=== PATIENT | female | born 1965 | race Caucasian/White ===

== ENCOUNTER 2017-02-17 21:29 | Inpatient (IN) | payer OTHER ==
[~2017-02-17] VITALS: Ht 231.1 cm; Wt 117.3 kg
[~2017-02-17 21:29] MED LIST: ASPI81TA82 PO; ATOR10TA PO; METO25 PO; PLAV75TA PO
[2017-02-17 22:50] VITALS: BP 128/68; PULSE 77; RESP 17; RESP 19; TEMP 96.2; O2SAT 96
[2017-02-17] MEDS: DOCUSATE SODIUM 100 MG CAP PO SCH (23:00)
[2017-02-17] MEDS ORDERED: ALUMINUM/MAGNESIUM/SIMETH 30 ML CUP PO PRN (23:30)
[2017-02-17] MEDS ORDERED: MAGNESIUM HYDROXIDE SUSP 30 ML CUP PO PRN (23:30)
[2017-02-17] MEDS ORDERED: ACETAMINOPHEN 325 MG TAB PO PRN (23:30)
[2017-02-17] MEDS ORDERED: LORazepam 2 MG/ML VIAL IM PRN (23:30)
[2017-02-18] MEDS: LORazepam 1 MG TAB PO PRN (01:06)
[2017-02-18 05:33] VITALS: BP 163/74; PULSE 73; RESP 17; TEMP 98.1; O2SAT 96
[2017-02-18 07:50] LABS: BLOOD, URINE LARGE (NEG); COMMENT (UR) CULT NOT INDICATED; CULTURE IF INDICATED CULT NOT INDICATED; GLUCOSE,URINE NEG (NEG); KETONE, URINE 10 mg/dL (NEG); MUCUS URINE FEW /lpf (OCC); NITRITE,URINE NEG (NEG); SQUAMOUS EPITHELIAL CELL URINE <1 /hpf (0-5); URINE COLOR YELLOW (YELLW/STRAW)
[2017-02-18] MEDS: CITALOPRAM HYDROBROMIDE 20 MG TAB PO SCH (08:37)
[2017-02-18] MEDS: LISINOPRIL 10 MG TAB PO SCH (08:38)
[2017-02-18] MEDS: ASPIRIN EC 81 MG TABEC PO SCH (08:38)
[2017-02-18] MEDS: ATORVASTATIN 40 MG TAB PO SCH (08:38)
[2017-02-18] MEDS: PANTOPRAZOLE SOD 40 MG DELAYED RELEASE TAB PO SCH (08:38)
[2017-02-18] MEDS: DOCUSATE SODIUM 100 MG CAP PO SCH ×2 (08:38→20:22)
[2017-02-18] MEDS: METOPROLOL SUCCINATE 25 MG EXTENDED RELEASE TAB PO SCH (08:38)
--- NOTE | 2017-02-18 16:29 | HHI.HP ---
Provisional Diagnosis Admission Date Feb 17, 2017 at 22:55 [place] I. Major depressive disorder, single episode, severe without psychotic features [place] II. deferred [place] III. CAD, arthritis, obesity [place] IV. recent divorce, finanical difficulty, limited social support [place] V. 35 Certification of Person's Competence To Provide Express and Informed Consent I have personally examined Dennise Spears , a person being served at [facility] on, Feb 18, 2017 16:29. Express and informed consent means consent voluntarily given in writing, by a competent person, after sufficient explanation and disclosure of the subject matter involved to enable the person to make a knowing and willful decision without any element of force, fraud, deceit, duress, or other form of constraint or coercion. This person is 18 years of age or older, is not now known to be incompetent to consent to treatment with a guardian advocate, and does not have a health care surrogate or proxy currently making medical treatment decisions. I have found this person to be one of the following: [x] Competent to provide express and informed consent, as defined above, for voluntary admission to this facility and is competent to provide express and informed consent for treatment. He/she has the consistent capacity to make well reasoned, willful, and knowing decisions concerning his or her medical or mental health treatment. The person fully and consistently understands the purpose of the admission for examination/placement and is fully capable of personally exercising all rights assured under [place] Incompetent to provide express and informed consent to voluntary admission, and this is incompetent to provide express and informed consent to treatment. The person must be transferred to involuntary status and a petition for a guardian advocate filed with the Circuit Court. [] Refusing to provide express and informed consent to voluntary admission but is competent to provide express and informed consent for treatment. The person must be discharged or transferred to involuntary status. Form shall be completed within 24 hours of a person's arrival at the receiving facility and filed in the clinical record of each person: 1. Admitted on a voluntary basis 2. Permitted to provide express and informed consent to his/her own treatment 3. Allowed to transfer from involuntary to voluntary status 4. Prior to permitting a person to consent to his or her own treatment after having been previously found incompetent to consent to treatment. History of Present Illness Capacity: Has Capacity HPI Patient is a 51 y/o woman, , domiciled with past psychiatric history of depression, no prior psychiatric admissions, three prior suicide attempts via overdose via cutting, who during treatment for chest pain at [facility] had endorsed suicidal ideations which she was transferred to the inpatient psychiatry unit for further evaluation and management. Patient found sitting on hospital bed, calm and cooperative with interview. Patient states prior to being taken to [facility] for chest pain she was found walking [place] having suicidal ideations with plans on cutting her wrists with the knife she had in her hand. She states that in October of this year her left her for another woman and moved out of the home which she then had to move into a small apartment as she could not afford to keep the home. She reports that she had less income, had a myocardial infarction at that time, had increased episodes of crying feeling depressed with poor sleep, energy, appetite, concentration, feeling worthless, hopeless, helpless and having SI daily since October. For the last two days she had been thinking of a method (overdose or cutting) but no plan. She recalls that the stressor that occurred prior to her admission was having received another bill to pay which she was upset about not being able to afford to pay it; started to argue with son and left the home with knife in hand to walk toward the railroad tracks. Currently she reports feeling depressed, noted to be crying throughout interview, continues to endorse SI but denies HI, AVH or delusions. Past psychiatric history: previous psychiatric diagnosis of depression, no prior psychiatric admissions, two prior suicide attempts, unknown history of self injurious behavior. Previous medication trials unable to assess at this time. Substance use history: uses e-cigarettes, denies use of alcohol or other drugs. Remote history o LSD and cocaine use years ago, THC use two weeks ago Past medical history: CAD, arthritis Allergies: PCN Social history: , lives with disabled son and sons girlfriend (also disabled), has two other children, unemployed, supported by the disability benefits from her son, highest education: some college. Review of Systems Except as stated in HPI: all other systems reviewed are Neg Past Psych History Violence risk - others (6 mos) low Violence risk - self (6 mos) moderate to high Substance Abuse History Drugs/Alcohol past 12 months uses e-cigarettes, denies use of alcohol or other drugs. Remote history o LSD and cocaine use years ago, THC use two weeks ago Past Family Social History Uncoded Allergies: CILLINS (Adverse Reaction, Severe, 05/09/15) Reported Medications Aspirin (Aspir-81) 81 Mg Tab, 81 MG PO DAILY, TAB 05/09/15 Clopidogrel Bisulfate (Plavix) Unknown Strength Tab, 75 MG PO DAILY, TAB 05/09/15 Metoprolol Tartrate 25 mg (Metoprolol Tartrate 25 mg) 25 Mg Tab, 25 MG PO BID, TAB 05/09/15 Atorvastatin 10 mg (Atorvastatin 10 mg) 10 Mg Tab, 10 MG PO DAILY, TAB 05/09/15 Current Medications Medications (Trade) Dose Ordered Sig/Liberty Route Start Time Stop Time Status Last Admin (Ecotrin Ec) 81 mg DAILY PO 02/18/17 09:00 02/18/17 08:38 (Lipitor) 40 mg DAILY PO 02/18/17 09:00 02/18/17 08:38 (CeleXA) 20 mg DAILY PO 02/18/17 09:00 02/18/17 08:37 (Colace) 100 mg BID PO 02/17/17 23:00 (Prinivil) 10 mg DAILY PO 02/18/17 09:00 02/18/17 08:38 (Toprol Xl) 25 mg DAILY PO 02/18/17 09:00 02/18/17 08:38 (Protonix) 40 mg DAILY PO 02/18/17 09:00 02/18/17 08:38 (Ativan) 1 mg Q6H PRN PO 02/17/17 23:30 02/18/17 01:06 (Ativan Inj) 1 mg Q6H PRN IM 02/17/17 23:30 (Tylenol) 650 mg Q4H PRN PO 02/17/17 23:30 (Milk Of Magnesia Liq) 30 ml DAILY PRN PO 02/17/17 23:30 (Mag-Al Plus Susp Liq) 30 ml Q6H PRN PO 02/17/17 23:30 (Benadryl) 50 mg HS PRN PO 02/18/17 11:00 Social History , lives with disabled son and sons girlfriend (also disabled), has two other children, unemployed, supported by the disability benefits from her son, highest education: some college. Patient's Strengths (min. 2) verbal and communicative Physical Exam Patient noted to be obese, in no acute distress, no gross motor abnormalities, no tremor or EPS, no psychomotor agitation or retardation Vital Signs Vital Signs Date Time Temp Pulse Resp B/P (MAP) Pulse Ox O2 Delivery O2 Flow Rate FiO2 02/18/17 05:33 98.1 73 17 163/74 (103) 96 I/O 02/18/17 02/18/17 02/19/17 08:00 16:00 00:00 Intake Total 240 ml 240 ml Balance 240 ml 240 ml Lab Results Labs reviewed. Test 02/18/17 06:23 02/18/17 08:34 Urine Color YELLOW Urine Turbidity CLEAR Urine pH 6.0 Urine Specific [place] 1.017 Urine Protein NEG mg/dL Urine Glucose (UA) NEG mg/dL Urine Ketones 10 mg/dL Urine Occult Blood LARGE Urine Nitrite NEG Urine Bilirubin NEG Urine Urobilinogen LESS THAN 2.0 MG/DL Urine Leukocyte Esterase NEG Urine RBC 21 /hpf Urine WBC 1 /hpf Urine Squamous Epithelial Cells <1 /hpf Urine Mucus FEW /lpf Microscopic Urinalysis Comment CULT NOT INDICATED Urine Opiates Screen NEG Urine Barbiturates Screen NEG Urine Amphetamines Screen NEG Urine Benzodiazepines Screen POS Urine Cocaine Screen NEG Urine Cannabinoids Screen POS Triglycerides Level 101 MG/DL Cholesterol Level 165 MG/DL LDL Cholesterol 100 MG/DL HDL Cholesterol 45.0 MG/DL Cholesterol/HDL Ratio 3.66 RATIO Thyroid Stimulating Hormone 3rd Gen 2.640 uIU/ML Mental Status Examination Appearance appears stated age, in hospital [facility], obese, fair hygiene and grooming, fair eye contact (crying at times) Speech: Unremarkable Orientation: x3 Memory: Unremarkable Thought Process: Logical, Linear Thought Content: Unremarkable Language fluent and spontaneous Fund of Knowledge average Hallucination Type: None Attention and Concentration: Other (fair) Suicidal Ideation: Yes Previous Suicide Attempts: Yes Homicidal Ideation: No Previous Homicide Attempts: No Insight: Poor Judgment: Poor Affect: Sad Mood: Sad Motor Activity: Normal gait Assessment & Plan Problem List: (1) Major depressive disorder, single episode, severe without psychosis ICD Codes: F32.2 - Major depressive disorder, single episode, severe without psychotic features Assessment & Plan atmarcello is a 51 y/o woman who carries a diagnosis of depression, no prior admissions, three remote suicide attempts who was transferred to the hospital from [facility] after management of chest pain where she had endorsed suicidal ideation Patient currently endorsing significant depressive symptoms, with increasing suicidal ideations in the context of multiple psychosocial stressors which she currently is at increased risk for self harm and requires inpatient psychiatric hospitalization for stabilization. Continue citalopram 20mg PO daily with upward titration as necessary for depression. Monitor for medication response and ADRs. Supportive psychotherapy provided. Discharge planning in progress. Benedict Javier MD Feb 18, 2017 16:29
--- NOTE | 2017-02-18 17:55 | PD.CONS ---
[facility] Request[facility] By Psychiatry for medical management Reason for Consult Medical management Primary Care Physician No Primary Care Physician Diagnoses: History of Present Illness 51-year-old white female being admitted for presumably worsening depression. History is obtained from the patient who is very pleasant upon my interaction. Patient reports coronary artery disease (w/ stents), hypertension, hyperlipidemia, osteoarthritis. Says that she is not necessarily compliant with all of her medications due to financial issues. Reports being out of her medications for a few weeks. Says that she takes essentially Tylenol for her osteoarthritis because NSAIDs are bleeding risk and her with her coronary artery disease being on Plavix. She does affirm that she has a history of a murmur that was worked up to be okay. Review of Systems Except as stated in HPI: all other systems reviewed are Neg Past Family Social History Allergies: Uncoded Allergies: CILLINS (Adverse Reaction, Severe, 05/09/15) Past Medical History Coronary artery disease, hypertension, hyperlipidemia Past Surgical History , tubal ligation, hysterectomy, coronary stent placement Family History Hypertension Social History Lives with her son and his girlfriend. Says she used to work. Says she used to smoke and occasionally does marijuana, denies alcohol Physical Exam Vital Signs Vital Signs Date Time Temp Pulse Resp B/P (MAP) Pulse Ox O2 Delivery O2 Flow Rate FiO2 02/18/17 05:33 98.1 73 17 163/74 (103) 96 02/17/17 22:50 96.2 77 19 128/68 (88) 96 02/17/17 22:50 96.2 77 17 128/68 (88) 96 Physical Exam VS: Reviewed, stable, afebrile GENERAL: No acute distress, pleasant SKIN: Warm and dry. EYES: Pupils equal and round. No scleral icterus. No injection or drainage. ENT: No nasal bleeding or discharge. Mucous membranes pink and moist. CARDIOVASCULAR: Regular rate and rhythm. 3/6 ejection murmur RESPIRATORY: No accessory muscle use. Clear to auscultation. Breath sounds equal bilaterally. GASTROINTESTINAL: Abdomen soft, non-tender, nondistended. Hepatic and splenic margins not palpable. MUSCULOSKELETAL: Extremities without clubbing, cyanosis, or edema. No obvious deformities. grossly intact ROM with 5/5 strength in upper and lower extremities proximally NEUROLOGICAL: Awake and alert. No obvious cranial nerve deficits. No facial droop nor slurred speech noted. PSYCHIATRIC: Appropriate mood and affect; insight and judgment normal. Laboratory Laboratory Tests Test 02/18/17 06:23 02/18/17 08:34 Urine Color YELLOW Urine Turbidity CLEAR Urine pH 6.0 Urine Specific [place] 1.017 Urine Protein NEG Urine Glucose (UA) NEG Urine Ketones 10 Urine Occult Blood LARGE Urine Nitrite NEG Urine Bilirubin NEG Urine Urobilinogen LESS THAN 2.0 Urine Leukocyte Esterase NEG Urine RBC 21 Urine WBC 1 Urine Squamous Epithelial Cells <1 Urine Mucus FEW Microscopic Urinalysis Comment CULT NOT INDICATED Urine Opiates Screen NEG Urine Barbiturates Screen NEG Urine Amphetamines Screen NEG Urine Benzodiazepines Screen POS Urine Cocaine Screen NEG Urine Cannabinoids Screen POS Triglycerides Level 101 Cholesterol Level 165 LDL Cholesterol 100 HDL Cholesterol 45.0 Cholesterol/HDL Ratio 3.66 Thyroid Stimulating Hormone 3rd Gen 2.640 Assessment and Plan Assessment and Plan 1) depression and other mood disorders -being managed by primary team, on citalopram 2) stable coronary artery disease - continue home aspirin and Lipitor 3) hypertension - continue home metoprolol and lisinopril 4) osteoarthritis - continue acetaminophen when necessary pain 5) heart murmur - stable by history, no signs of fluid overload at this time, thus no workup planned at this time Thank you for allowing us to participate in the care of this pleasant patient. Rajendra Voss MD Feb 18, 2017 17:55
[2017-02-18 18:15] VITALS: BP 129/61; PULSE 79; RESP 17; TEMP 98.4; O2SAT 96
[2017-02-19 05:08] VITALS: BP 181/74; PULSE 65; RESP 16; TEMP 98; O2SAT 95
[2017-02-19] MEDS: DOCUSATE SODIUM 100 MG CAP PO SCH ×2 (09:00→21:00)
[2017-02-19] MEDS ORDERED: cloNIDine HCL 0.1 MG TAB PO PRN (09:15)
[2017-02-19] MEDS ORDERED: ACETAMIN 325 MG/BUTALBITAL 50 MG/CAFFEINE 40 MG TAB PO ONE (09:15)
[2017-02-19] MEDS: CITALOPRAM HYDROBROMIDE 20 MG TAB PO SCH (09:33)
[2017-02-19] MEDS: PANTOPRAZOLE SOD 40 MG DELAYED RELEASE TAB PO SCH (09:33)
[2017-02-19] MEDS: ATORVASTATIN 40 MG TAB PO SCH (09:33)
[2017-02-19] MEDS: LISINOPRIL 10 MG TAB PO SCH (09:33)
[2017-02-19] MEDS: ASPIRIN EC 81 MG TABEC PO SCH (09:33)
[2017-02-19] MEDS: METOPROLOL SUCCINATE 25 MG EXTENDED RELEASE TAB PO SCH (09:34)
--- NOTE | 2017-02-19 09:58 | HHI.PR ---
Subjective Remarks Follow-up on patient with hypertension, stable coronary artery disease and depression. Patient seen and examined today. Patient's complaining of headache she believes is due to elevated blood pressure. She has not been given her blood pressure medication as of yet this mornings. She denies any associated fever, chills, vision changes, dizziness or lightheadedness. She denies any chest pain or shortness of breath. She denies any nausea, vomiting or abdominal pain. She denies any hematuria, dysuria or other urinary complaints. States that she was seen by the urologist about a year ago for incontinence and was recommended a bladder sling. She denies a previous workup for hematuria. She is wanting to be discharged to home. Objective Vitals Vital Signs Date Time Temp Pulse Resp B/P (MAP) Pulse Ox O2 Delivery O2 Flow Rate FiO2 02/19/17 05:08 98.0 65 16 181/74 (109) 95 02/18/17 18:15 98.4 79 17 129/61 (83) 96 I/O 02/18/17 02/18/17 02/18/17 02/19/17 02/19/17 02/19/17 07:00 15:00 23:00 07:00 15:00 23:00 Intake Total 480 ml 240 ml Balance 480 ml 240 ml Intake Oral 480 ml 240 ml Objective Remarks GENERAL: Well-nourished, well-developed patient in NAD. Awake and alert. Calm and pleasant. SKIN: Warm and dry. No rash. HEAD: Normocephalic. Atraumatic. EYES: EOMI. No scleral icterus. No injection or drainage. ENT: No nasal bleeding or discharge. Mucous membranes pink and moist. NECK: Supple. Trachea midline. CARDIOVASCULAR: Regular rate and rhythm. S1, S2 noted. 3/6 ejection murmur noted. RESPIRATORY: No accessory muscle use. Clear to auscultation. Breath sounds equal bilaterally. GASTROINTESTINAL: Abdomen soft, non-tender, nondistended. Normoactive bowel sounds x4. MUSCULOSKELETAL: No obvious deformities. Extremities without clubbing, cyanosis , or edema. NEUROLOGICAL: Awake and alert. Able to move all extremities. Normal speech. PSYCHIATRIC: Appropriate mood and affect; insight and judgment normal. Medications and IVs Current Medications Medications (Trade) Dose Ordered Sig/[place] Route Start Time Stop Time Status Last Admin (Ecotrin Ec) 81 mg DAILY PO 02/18/17 09:00 02/19/17 09:33 (Lipitor) 40 mg DAILY PO 02/18/17 09:00 02/19/17 09:33 (CeleXA) 20 mg DAILY PO 02/18/17 09:00 02/19/17 09:33 (Colace) 100 mg BID PO 02/17/17 23:00 (Prinivil) 10 mg DAILY PO 02/18/17 09:00 02/19/17 09:33 (Toprol Xl) 25 mg DAILY PO 02/18/17 09:00 02/19/17 09:34 (Protonix) 40 mg DAILY PO 02/18/17 09:00 02/19/17 09:33 (Ativan) 1 mg Q6H PRN PO 02/17/17 23:30 02/18/17 01:06 (Ativan Inj) 1 mg Q6H PRN IM 02/17/17 23:30 (Tylenol) 650 mg Q4H PRN PO 02/17/17 23:30 (Milk Of Magnesia Liq) 30 ml DAILY PRN PO 02/17/17 23:30 (Mag-Al Plus Susp Liq) 30 ml Q6H PRN PO 02/17/17 23:30 (Benadryl) 50 mg HS PRN PO 02/18/17 11:00 (Catapres) 0.1 mg Q6H PRN PO 02/19/17 09:15 UNV (Fioricet 325-50-40) 1 tab ONCE ONCE PO 02/19/17 09:15 02/19/17 09:16 UNV A/P Assessment and Plan 51-year-old white female being admitted for presumably worsening depression asked to be seen in consultation by hospitalist services for medical management of coronary artery disease (w/ stents), hypertension, hyperlipidemia, osteoarthritis. Worsening depression Management per psychiatric team Stable coronary artery disease Heart murmur, stable by history No complaints of chest pain Continue home dose of aspirin and Lipitor Monitor for evidence of fluid overload Hypertension Elevated BP this a.m. 181/74 Continue patient's home dose of lisinopril and metoprolol Clonidine 0.1 mg added when necessary with parameters Will continue to monitor BP and if continued elevation we'll adjust lisinopril dose Headache Fioricet 1 Microscopic hematuria UA positive for large blood No urinary complaints History of previous hysterectomy Patient reports seeing a urologist about a year ago but not for workup of hematuria. She does admit to a history of heavy tobacco use of 2 packs a day since she was a teenager but quit 5 years ago. Would recommend the patient follow up as outpatient with urologist for further evaluation of hematuria. DVT prophylaxis Patient is ambulatory Discussed with patient and Denae Reyes Feb 19, 2017 09:58
--- NOTE | 2017-02-19 11:22 | HHI.PYPN ---
Subjective Remarks Patient seen for follow-up, chart review. I discussed with nursing staff patient focused on discharge. Patient found but is paying activity group was able to engage in interview today. Patient stated that she is feeling "fine" and that her mood has been "pretty good" reporting that she hasn't cried since she has been in the hospital. She states that she would like to have her clothes back to where it on the unit. Patient was somewhat concerned this morning her blood pressure was elevated although is currently being followed by the hospitalist. Patient reports tolerating medication well denies any adverse drug reactions. Patient continues to feel frustrated and upset that she has to remain here over the weekend but is willing to comply with treatment and cooperative with staff. Patient reports that before going home to be with her children and dog. Review of Systems Except as stated in HPI: all other systems reviewed are Neg Objective Alert: Yes [place]: Person, Place, Date Mood: Other ("pretty good") Affect: Other (somewhat irritable) Memory Intact: Comment (contact) Hallucinations: Other (denies) Delusions: No Delusion Type: Other (denies) Suicidal: Ideation (denies) Homicidal: Ideation (denies) Insight/Judgment Limited insight, fair impulse control and judgment Vitals/IOs Vital Signs Date Time Temp Pulse Resp B/P (MAP) Pulse Ox O2 Delivery O2 Flow Rate FiO2 02/19/17 05:08 98.0 65 16 181/74 (109 95 Assessment & Plan Problem List: (1) Major depressive disorder, single episode, severe without psychosis ICD Codes: F32.2 - Major depressive disorder, single episode, severe without psychotic features Assessment & Plan Patient at this time reports having improved mood, reports not having had any more episodes of crying since admission. Patient perseverated on discharge. Continue current treatment, discharge planning in progress Justification for Cont. Inpt. Patient at risk for further decompensation if at a lower level of care Benedict Javier MD Feb 19, 2017 11:22
--- NOTE | 2017-02-19 12:22 | EKG ---
Date Performed: 02/18/2017 Time Performed: 06:54:26 PTAGE: 51 years EKG: Sinus rhythm NONSPECIFIC ST & T-WAVE ABNORMALITY BORDERLINE ECG PREVIOUS TRACING : 05/10/[address] changes are new from the prior tracing. DOCTOR: Gerson Yancey Interpretating Date/Time 02/19/2017 12:21:51
[2017-02-19 18:10] VITALS: BP 167/77; PULSE 66; RESP 17; TEMP 98.3; O2SAT 98
[2017-02-19] MEDS: diphenhydrAMINE HCL 50 MG CAP PO PRN (21:30)
[2017-02-20 04:57] VITALS: BP 119/64; PULSE 68; RESP 16; TEMP 98; O2SAT 97
[2017-02-20] MEDS: CITALOPRAM HYDROBROMIDE 20 MG TAB PO SCH (08:59)
[2017-02-20] MEDS: METOPROLOL SUCCINATE 25 MG EXTENDED RELEASE TAB PO SCH (08:59)
[2017-02-20] MEDS: PANTOPRAZOLE SOD 40 MG DELAYED RELEASE TAB PO SCH (08:59)
[2017-02-20] MEDS: DOCUSATE SODIUM 100 MG CAP PO SCH ×2 (09:00→20:49)
[2017-02-20] MEDS: ATORVASTATIN 40 MG TAB PO SCH (09:00)
[2017-02-20] MEDS: LISINOPRIL 10 MG TAB PO SCH (09:00)
[2017-02-20] MEDS: ASPIRIN EC 81 MG TABEC PO SCH (09:00)
--- NOTE | 2017-02-20 15:08 | HHI.PR ---
Subjective Remarks Follow-up on patient with hypertension, stable coronary artery disease and depression. Patient seen and examined today. Patient had good response with Fioricet on headache. She denies any other complaints at this time. BP is better controlled. Objective Vitals Vital Signs Date Time Temp Pulse Resp B/P (MAP) Pulse Ox O2 Delivery O2 Flow Rate FiO2 02/20/17 04:57 98.0 68 16 119/64 (82) 97 02/19/17 18:10 98.3 66 17 167/77 (107) 98 Objective Remarks GENERAL: Well-nourished, well-developed patient in NAD. Awake and alert. Sitting in day room watching TV. SKIN: Warm and dry. No rash. HEAD: Normocephalic. Atraumatic. EYES: EOMI. No scleral icterus. No injection or drainage. ENT: No nasal bleeding or discharge. Mucous membranes pink and moist. NECK: Supple. Trachea midline. CARDIOVASCULAR: Regular rate and rhythm. S1, S2 noted. 3/6 ejection murmur noted. RESPIRATORY: No accessory muscle use. Clear to auscultation. Breath sounds equal bilaterally. GASTROINTESTINAL: Abdomen soft, non-tender, nondistended. Normoactive bowel sounds x4. MUSCULOSKELETAL: No obvious deformities. Extremities without clubbing, cyanosis , or edema. NEUROLOGICAL: Awake and alert. Able to move all extremities. Normal speech. PSYCHIATRIC: Appropriate mood and affect; insight and judgment normal. Medications and IVs Current Medications Medications (Trade) Dose Ordered Sig/[place]iber[place] Route Start Time Stop Time Status Last Admin (Ecotrin Ec) 81 mg DAILY PO 02/18/17 09:00 02/20/17 09:00 (Lipitor) 40 mg DAILY PO 02/18/17 09:00 02/20/17 09:00 (CeleXA) 20 mg DAILY PO 02/18/17 09:00 02/20/17 08:59 (Colace) 100 mg BID PO 02/17/17 23:00 (Prinivil) 10 mg DAILY PO 02/18/17 09:00 02/20/17 09:00 (Toprol Xl) 25 mg DAILY PO 02/18/17 09:00 02/20/17 08:59 (Protonix) 40 mg DAILY PO 02/18/17 09:00 02/20/17 08:59 (Ativan) 1 mg Q6H PRN PO 02/17/17 23:30 02/18/17 01:06 (Ativan Inj) 1 mg Q6H PRN IM 02/17/17 23:30 (Tylenol) 650 mg Q4H PRN PO 02/17/17 23:30 02/19/17 17:59 (Milk Of Magnesia Liq) 30 ml DAILY PRN PO 02/17/17 23:30 (Mag-Al Plus Susp Liq) 30 ml Q6H PRN PO 02/17/17 23:30 (Benadryl) 50 mg HS PRN PO 02/18/17 11:00 02/19/17 21:30 (Catapres) 0.1 mg Q6H PRN PO 02/19/17 09:15 (Fioricet 325-50-40) 1 tab Q8H PRN PO 02/20/17 15:00 A/P Assessment and Plan 51-year-old white female being admitted for presumably worsening depression asked to be seen in consultation by hospitalist services for medical management of coronary artery disease (w/ stents), hypertension, hyperlipidemia, osteoarthritis. Worsening depression Management per psychiatric team Stable coronary artery disease Heart murmur, stable by history No complaints of chest pain Continue home dose of aspirin and Lipitor Monitor for evidence of fluid overload Hypertension episode of elevated BP now controlled Continue patient's home dose of lisinopril and metoprolol Clonidine 0.1 mg added when necessary with parameters Will continue to monitor BP and if continued elevation we'll adjust lisinopril dose Headache Fioricet prn Microscopic hematuria UA positive for large blood No urinary complaints History of previous hysterectomy Patient reports seeing a urologist about a year ago but not for workup of hematuria. She does admit to a history of heavy tobacco use of 2 packs a day since she was a teenager but quit 5 years ago. Would recommend the patient follow up as outpatient with urologist for further evaluation of hematuria and likely cystoscopy. DVT prophylaxis Patient is ambulatory Discussed with patient and Dr. Voss Patient appears stable from hospitalist standpoint. Will sign off. Please reconsult if needed. Denae Heredia Feb 20, 2017 15:08
--- NOTE | 2017-02-20 15:22 | HHI.PYPN ---
Subjective Remarks Patient was seen and case discussed with nursing. She is perseverant on her headache today. Mood is "fine." Affect is mildly irritable. No chest pain or shortness of breath. Says she remains depressed but is feeling "better." She denies suicidal or homicidal ideation intent or plan. Compliant with medications Objective Alert: Yes [place]: Person, Place, Date Mood: Other ("fine.") Affect: Other (mildly irritable) Memory Intact: Comment (contact) Hallucinations: Other (denies) Delusions: No Delusion Type: Other (denies) Suicidal: Ideation (denies) Homicidal: Ideation (denies) Insight/Judgment Fair Vitals/IOs Vital Signs Date Time Temp Pulse Resp B/P (MAP) Pulse Ox O2 Delivery O2 Flow Rate FiO2 02/20/17 04:57 98.0 68 16 119/64 (82) 97 Assessment & Plan Problem List: (1) Major depressive disorder, single episode, severe without psychosis ICD Codes: F32.2 - Major depressive disorder, single episode, severe without psychotic features Assessment & Plan Nursing asked to administer when necessary fiorocet for headache Justification for Cont. Inpt. Patient will decompensate in a less restrictive setting Devaughn Byrnes DO Feb 20, 2017 15:22
[2017-02-20] MEDS: ACETAMIN 325 MG/BUTALBITAL 50 MG/CAFFEINE 40 MG TAB PO PRN (17:09)
[2017-02-20 20:10] VITALS: BP 138/73; PULSE 67; RESP 18; TEMP 97.9; O2SAT 96
[2017-02-20] MEDS: diphenhydrAMINE HCL 50 MG CAP PO PRN (20:49)
[2017-02-21 05:13] VITALS: BP 141/60; PULSE 64; RESP 16; TEMP 98; O2SAT 98
[2017-02-21] MEDS: ATORVASTATIN 40 MG TAB PO SCH (08:58)
[2017-02-21] MEDS: PANTOPRAZOLE SOD 40 MG DELAYED RELEASE TAB PO SCH (08:58)
[2017-02-21] MEDS: METOPROLOL SUCCINATE 25 MG EXTENDED RELEASE TAB PO SCH (08:58)
[2017-02-21] MEDS: ASPIRIN EC 81 MG TABEC PO SCH (08:59)
[2017-02-21] MEDS: LISINOPRIL 10 MG TAB PO SCH (08:59)
[2017-02-21] MEDS: CITALOPRAM HYDROBROMIDE 20 MG TAB PO SCH (08:59)
[2017-02-21] MEDS: DOCUSATE SODIUM 100 MG CAP PO SCH ×2 (09:00→21:00)
[2017-02-21] MEDS: LORazepam 1 MG TAB PO PRN (10:38)
[2017-02-21] MEDS: ACETAMIN 325 MG/BUTALBITAL 50 MG/CAFFEINE 40 MG TAB PO PRN ×3 (10:39→22:05)
--- NOTE | 2017-02-21 12:30 | HHI.PYPN ---
Subjective Remarks Patient was seen and case discussed with nursing. Patient has improved from yesterday. Her affect is brighter, she is laughing, interactive, and social with others. Headache has resolved with fiorocet. Denies depressed mood. Denies suicidal or homicidal ideation intent or plan. Tolerating medications well Objective Alert: Yes [place]: Person, Place, Date Mood: Calm Affect: Appropriate Memory Intact: Comment (intact) Hallucinations: Other (denies) Delusions: No Delusion Type: Other (denies) Suicidal: Ideation (denies) Homicidal: Ideation (denies) Insight/Judgment Improving Vitals/IOs Vital Signs Date Time Temp Pulse Resp B/P (MAP) Pulse Ox O2 Delivery O2 Flow Rate FiO2 02/21/17 05:13 98.0 64 16 141/60 (87) 98 Assessment & Plan Problem List: (1) Major depressive disorder, single episode, severe without psychosis ICD Codes: F32.2 - Major depressive disorder, single episode, severe without psychotic features Assessment & Plan Continue current treatment plan Justification for Cont. Inpt. Patient will decompensate in a less restrictive setting Devaughn Byrnes DO Feb 21, 2017 12:30
[2017-02-21] MEDS: diphenhydrAMINE HCL 50 MG CAP PO PRN (21:10)
[2017-02-22 05:12] VITALS: BP 132/79; PULSE 61; RESP 16; TEMP 97.6; O2SAT 97
[2017-02-22] MEDS: LISINOPRIL 10 MG TAB PO SCH (08:36)
[2017-02-22] MEDS: ATORVASTATIN 40 MG TAB PO SCH (08:36)
[2017-02-22] MEDS: PANTOPRAZOLE SOD 40 MG DELAYED RELEASE TAB PO SCH (08:36)
[2017-02-22] MEDS: ASPIRIN EC 81 MG TABEC PO SCH (08:36)
[2017-02-22] MEDS: CITALOPRAM HYDROBROMIDE 20 MG TAB PO SCH (08:36)
[2017-02-22] MEDS: METOPROLOL SUCCINATE 25 MG EXTENDED RELEASE TAB PO SCH (08:37)
[2017-02-22] MEDS: DOCUSATE SODIUM 100 MG CAP PO SCH (08:37)
[2017-02-22] MEDS: ACETAMIN 325 MG/BUTALBITAL 50 MG/CAFFEINE 40 MG TAB PO PRN (08:54)
[2017-02-22] MEDS ORDERED: CELE20TA PO (09:18)
[2017-02-22] MEDS ORDERED: ATOR40TA16 PO (09:18)
[2017-02-22] MEDS ORDERED: PANT40TA3 PO (09:18)
[2017-02-22] MEDS ORDERED: DOCU1CAP39 PO (09:18)
[2017-02-22] MEDS ORDERED: LISI10TA3 PO (09:18)
[2017-02-22] MEDS ORDERED: METO25TA6 PO (09:18)
[2017-02-22] MEDS ORDERED: ASPI-99 PO (09:18)
--- NOTE | 2017-02-22 09:19 | HHI.DS ---
Psychiatry Discharge Summary Inpatient Psychiatric care?: Yes Advance Directive: No Reason Not Provided: Due to Patient Condition Mental Health AdvanceDirective: No Health Care Proxy: No Admission Admission Date Feb 17, 2017 at 22:55 Admission Diagnosis: (1) Major depressive disorder, single episode, severe without psychosis ICD Code: F32.2 - Major depressive disorder, single episode, severe without psychotic features Brief History Patient is a 51 y/o woman, , domiciled with past psychiatric history of depression, no prior psychiatric admissions, three prior suicide attempts via overdose via cutting, who during treatment for chest pain at [facility] had endorsed suicidal ideations which she was transferred to the inpatient psychiatry unit for further evaluation and management. Patient found sitting on hospital bed, calm and cooperative with interview. Patient states prior to being taken to [facility] for chest pain she was found walking [place] having suicidal ideations with plans on cutting her wrists with the knife she had in her hand. She states that in October of this year her left her for another woman and moved out of the home which she then had to move into a small apartment as she could not afford to keep the home. She reports that she had less income, had a myocardial infarction at that time, had increased episodes of crying feeling depressed with poor sleep, energy, appetite, concentration, feeling worthless, hopeless, helpless and having SI daily since October. For the last two days she had been thinking of a method (overdose or cutting) but no plan. She recalls that the stressor that occurred prior to her admission was having received another bill to pay which she was upset about not being able to afford to pay it; started to argue with son and left the home with knife in hand to walk toward the railroad tracks. Currently she reports feeling depressed, noted to be crying throughout interview, continues to endorse SI but denies HI, AVH or delusions. Past psychiatric history: previous psychiatric diagnosis of depression, no prior psychiatric admissions, two prior suicide attempts, unknown history of self injurious behavior. Previous medication trials unable to assess at this time. Substance use history: uses e-cigarettes, denies use of alcohol or other drugs. Remote history o LSD and cocaine use years ago, THC use two weeks ago Past medical history: CAD, arthritis Allergies: PCN Social history: , lives with disabled son and sons girlfriend (also disabled), has two other children, unemployed, supported by the disability benefits from her son, highest education: some college. Tobacco Use In Past 30 Days: No Tobacco Past 30 Days Alcohol Use: Never Hospital Course Patient is a 51 y/o woman, , domiciled with past psychiatric history of depression, no prior psychiatric admissions, three prior suicide attempts via overdose via cutting, who during treatment for chest pain at [facility] had endorsed suicidal ideations which she was transferred to the inpatient psychiatry unit for further evaluation and management. Patient started on citalopram 20mg PO daily as she had previously been on this medication with past positive response. Patient noted to have improved in mood , no longer having crying spells, future oriented and more hopeful. Patient continued to respond well to treatment and mileu. Patient upon discharge stated feeling ready to go home as she misses her family. She states that she feel in control and that her depression has improved and feels well on current treatment. Patient agrees to follow up with outpatient appointments as well as continue with current treatment. Patient is future oriented and psychiatrically stable for discharge. Patient advised to call 911 or go to nearest ED in case of emergency. Patient agrees with plan. Results Blood Pressure 132 / 79 Vital Signs Date Time Temp Pulse Resp B/P (MAP) Pulse Ox O2 Delivery O2 Flow Rate FiO2 02/22/17 05:12 97.6 61 16 132/79 (96) 97 Laboratory Results Test 02/18/17 08:34 Cholesterol Level 165 MG/DL (120-200) HDL Cholesterol 45.0 MG/DL (40.0-60.0) LDL Cholesterol 100 MG/DL (0-99) Triglycerides Level 101 MG/DL (42-150) Summary of Procedures None Pending results at discharge: No Medications # of Antipsychotic meds at D/C: 0 Approp Antipsych med options 1 - Minimum of three failed multiple trials of monotherapy. 2 - Documented plan to taper to monotherapy due to previous use of multiple meds OR cross-taper in progress at D/C. 3 - Documentation of augmentation of Clozapine. 4 - Justification other than those listed in allowable values 1-3, document here : Discharge Discharge Date: Feb 22, 2017 Discharge Diagnosis: (1) Major depressive disorder, single episode, severe without psychosis Diagnosis: Principal ICD Code: F32.2 - Major depressive disorder, single episode, severe without psychotic features Mental Status Exam at Disch Appearance/Behavior: appears stated age, obese, in casual clothing, noted to be calm and cooperative with interview, fair eye contact Speech: normal rate, tone and prosody Mood: euthymic Affect: congruent with mood TP: linear, future oriented TC: denies SI, HI, AVH or delusions Insight/Impulse control/Judgment: Fair Alert and oriented x 3 Pt Condition on Discharge: Fair Discharge Disposition: Discharge Home Discharge Instructions Diet Instructions: Heart Healthy Diet Activities you can perform: Regular-No Restrictions Discharge Time > 30 minutes Discharge/Advance Care Plan Health Problems: (1) Major depressive disorder, single episode, severe without psychosis Goals to promote your health * To prevent worsening of your condition and complications * To maintain your health at the optimal level Directions to meet your goals Take your medications as prescribed Follow your dietary instruction Follow activity as directed Keep your appointments as scheduled Take your immunizations and boosters as scheduled If your symptoms worsen call your PCP, if no PCP go to Urgent Care Center or Emergency Room For 11/01 questions related to your inpatient stay or results of tests pending at discharge, please contact Dr. Benedict Javier at Smoking is Dangerous to Your Health. Avoid second hand smoking Benedict Javier MD Feb 22, 2017 09:19
== END 2017-02-22 11:55 | disposition home or self-care (01) | DRG 885 ==
LOC: H260 22:55
PROVIDERS: ADMIT Student in an Organized Health Care Education/Training Program; ATTEND Student in an Organized Health Care Education/Training Program
DX: F32.2 Major depressive disorder, single episode, severe without psychotic features (principal); R45.851 Suicidal ideations; I10 Essential (primary) hypertension; E66.9 Obesity, unspecified; I25.10 Atherosclerotic heart disease of native coronary artery without angina pectoris; M19.90 Unspecified osteoarthritis, unspecified site; F12.90 Cannabis use, unspecified, uncomplicated; E78.5 Hyperlipidemia, unspecified; Z87.891 Personal history of nicotine dependence; Z79.82 Long term (current) use of aspirin; I25.2 Old myocardial infarction; R31.29 Other microscopic hematuria; R51 Headache; Z91.5 Personal history of self-harm; Z95.5 Presence of coronary angioplasty implant and graft; Z59.9 Problem related to housing and economic circumstances, unspecified
CPT/HCPCS: 80061; 80307; 81001; 84443; 93005; Q0163